=== PATIENT | male | born 1950 | race Caucasian/White ===

== ENCOUNTER → 2016-11-10 | Outpatient (CLI) | payer MEDICARE, OTHER ==
[~2016-11-10] VITALS: Ht 170.2 cm; Wt 78.0 kg
[~2016-11-10] MED LIST: 00186-0370-20 IH; ALDACTONE 25MG25 M1 PO; BETAPACE 120MG120 MG PO; CELEXA 20MG20 MG/TAB PO; CLARITIN 1010 MG/TAB PO; ELIQUIS 2.5 PO; PRAVACHOL 40MG40 MG PO; PRILOSEC 20MG20 MG PO; PRINIVIL20 MG PO; SPIRIVA RE2.5 MCG/Ac IH; VENTOLIN0.09 MG IH
[2016-11-10 09:09] VITALS: BP 105/81; PULSE 75
[2016-11-10 10:15] VITALS: BP 107/67; PULSE 67
[2016-11-10 10:20] VITALS: BP 104/69; PULSE 65
[2016-11-10 10:25] VITALS: BP 112/66; PULSE 63
[2016-11-10 10:30] VITALS: BP 102/58; PULSE 68
== END ==
LOC: COL.RAD 08:32
DX: R91.1 Solitary pulmonary nodule (principal)